=== PATIENT | female | born 1965 ===

== ENCOUNTER 2018-02-18 18:44 | Emergency (ER) | payer SELFPAY ==
[2018-02-18 18:49] VITALS: BP 138/85; PULSE 148; TEMP 98.8; O2SAT 95
--- NOTE | 2018-02-18 19:35 | C.PDOC ---
History Of Present Illness 52 year old female, with history of constipation and workman's palsy 3 weeks ago, presents to ED complaining of epigastric pain that started 3 hours ago but was resolved spontaneously during her ER evaluation. Denies history of colic. States she would rather prefer a workup. Has severe left-sided facial droop without pain, and states she has been applying appropriate eye care at night. Time Seen by Provider: 02/18/18 19:32 Chief Complaint (Nursing): Abdominal Pain History Per: Patient History/Exam Limitations: no limitations Onset/Duration Of Symptoms: Hrs Current Symptoms Are (Timing): Still Present Past Medical History Reviewed: Historical Data, Nursing Documentation, Vital Signs Vital Signs: Last Vital Signs Temp 98.8 F 02/18/18 18:48 Pulse 148 H 02/18/18 18:48 Resp BP 138/85 02/18/18 18:48 Pulse Ox 95 02/18/18 18:48 - Medical History PMH: HTN Denies: Chronic Kidney Disease Family History: States: No Known Family Hx - Social History Hx Alcohol Use: No Hx Substance Use: No - Immunization History Hx Tetanus Toxoid Vaccination: No Hx Influenza Vaccination: No Hx Pneumococcal Vaccination: No Review Of Systems Except As Marked, All Systems Reviewed And Found Negative. Constitutional: Negative for: Fever, Chills Cardiovascular: Negative for: Chest Pain Respiratory: Negative for: Cough, Shortness of Breath Gastrointestinal: Positive for: Abdominal Pain (epigastric). Negative for: Nausea, Vomiting Neurological: Negative for: Weakness, Numbness Physical Exam - Physical Exam Appears: Non-toxic, No Acute Distress Skin: Warm, Dry Head: Atraumatic, Normacephalic Eye(s): bilateral: Normal Inspection Oral Mucosa: Moist Cardiovascular: Rhythm Regular Respiratory: Normal Breath Sounds, No Rales, No Rhonchi, No Wheezing Gastrointestinal/Abdominal: Soft, No Tenderness Neurological/Psych: Oriented x3, Normal Speech Other Neurological Findings: Facial Palsy (L sided) ED Course And Treatment O2 Sat by Pulse Oximetry: 95 (RA) Pulse Ox Interpretation: Normal Medical Decision Making Medical Decision Making: prob epigastric colic, obese abd benign pt defers w/u now w informed consent return PRN Disposition Doctor Will See Patient In The: Office Counseled Patient/Family Regarding: Studies Performed, Diagnosis - Disposition Referrals: Florentin Prasad MD [Medical Doctor] - Disposition: HOME/ ROUTINE Disposition Time: 19:35 Condition: GOOD Additional Instructions: laxatives as needed return to ED if significant symptoms return. Presume constipation. Instructions: Constipation, Adult (DC) Forms: [facility] (Malay) - Clinical Impression Clinical Impression: Colicky abdominal pain - Scribe Statement The provider has reviewed the documentation as recorded by the Mariaibvijaya Reese Provider Attestation: All medical record entries made by the Mariaibvijaya were at my direction and personally dictated by me. I have reviewed the chart and agree that the record accurately reflects my personal performance of the history, physical exam, medical decision making, and the department course for this patient. I have also personally directed, reviewed, and agree with the discharge instructions and disposition.
== END 2018-02-18 19:53 | disposition home or self-care (01) ==
LOC: C.ER 18:44
DX: R10.13 Epigastric pain (principal)